=== PATIENT | male | born 2000 | race Hispanic/Latino ===

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

== ENCOUNTER 2019-05-02 22:11 | Emergency (ER) | payer MEDICAID, SELFPAY ==
[2019-05-02] MEDS ORDERED: Ibuprofen 200 MG TAB ONE (22:27)
== END 2019-05-02 22:35 | disposition home or self-care (01) ==
LOC: BURERS 22:11
DX: J11.1 Influenza due to unidentified influenza virus with other respiratory manifestations (principal)
CPT/HCPCS: 99283